=== PATIENT | male | born 1955 | race Two or more races ===

== ENCOUNTER 2023-04-09 16:15 | Inpatient (IN) | payer MEDICARE, OTHER ==
[~2023-04-09] VITALS: Ht 170.2 cm; Wt 70.8 kg
[~2023-04-09 16:15] MED LIST: METF-1185 PO
[2023-04-09 16:30] VITALS: BP 133/73; PULSE 85; RESP 18; TEMP 98.1; O2SAT 100
[2023-04-09] MEDS ORDERED: MAGNESIUM HYDROXIDE SUSPENSION 30 ML UDCUP PO PRN (16:30)
[2023-04-09] MEDS ORDERED: DEXTROSE 50%-WATER 25 GM/50 ML SYRINGE IVP PRN (16:30)
[2023-04-09] MEDS ORDERED: PNEUMOCOCCAL VACCINE POLYVALENT 0.5 ML SYRINGE [PPSV23] IM. ONE (17:15)
[2023-04-09] MEDS ORDERED: INFLUENZA VIRUS VACCINE QVS 2023-24 (6MO+)/PF 60 MCG/0.5 ML SYRINGE IM. ONE (17:15)
[2023-04-09 17:56] LABS: GLUCOMETER DEV NAME(LOC) 2WR.2B; GLUCOSE,POINT OF CARE 231 MG/DL (70-110)
[2023-04-09] MEDS: INSULIN LISPRO 100 UNITS/ML SQ PRN ×2 (18:01→20:21)
[2023-04-09 19:33] VITALS: BP 160/67; PULSE 94; RESP 19; TEMP 98.1; O2SAT 99
[2023-04-09] MEDS: OxyCODONE HCL/ACETAMINOPHEN 5-325 MG TABLET PO PRN (19:33)
[2023-04-09] MEDS: ENOXAPARIN SODIUM 40 MG/0.4 ML PF SYRINGE SQ SCH (20:22)
[2023-04-09] MEDS: DOCUSATE SODIUM 250 MG CAPSULE PO SCH (20:23)
[2023-04-09] MEDS: METOPROLOL TARTRATE 25 MG TABLET PO SCH (20:23)
[2023-04-09] MEDS: SENNOSIDES 8.6 MG TABLET PO PRN (20:23)
[2023-04-09 20:36] LABS: GLUCOMETER DEV NAME(LOC) 2WR.2B; GLUCOSE,POINT OF CARE 243 MG/DL (70-110)
[2023-04-09 20:56] VITALS: O2SAT 99
[2023-04-09] MEDS ORDERED: DOCUSATE SODIUM 100 MG CAPSULE PO SCH (21:00)
[2023-04-09] MEDS: BISACODYL 10 MG RECTAL RECTAL SUPPOSITORY PR PRN (22:42)
[2023-04-10 06:30] VITALS: BP 151/75; PULSE 86; RESP 18; O2SAT 97
[2023-04-10 06:41] LABS: GLUCOMETER DEV NAME(LOC) 2WR.1D; GLUCOSE,POINT OF CARE 213 MG/DL (70-110)
[2023-04-10 06:54] LABS: BASOPHILS % (AUTO) 0.3 % (0.0-2.0); EOSINOPHILS % (AUTO) 0.9 % (1.0-6.0); HEMATOCRIT 26.1 % (41-53); HEMOGLOBIN 8.7 g/dL (13.5-17.5); LYMPHOCYTES # (AUTO) 1.3 K/uL (1.0-4.8); LYMPHOCYTES % (AUTO) 8.8 % (22.0-44.0); MEAN CORPUSCULAR HEMOGLOBIN 30.5 pg (26.0-34.0); MEAN CORPUSCULAR HGB CONC 33.3 G/dL (31.0-37.0); MEAN CORPUSCULAR VOLUME 92 fL (80-100); MONOCYTES # (AUTO) 0.8 K/uL (0.1-1.0); MONOCYTES % (AUTO) 5.6 % (2.0-9.0); NEUTROPHILS # (AUTO) 12.4 K/uL (1.8-7.7); NEUTROPHILS % (AUTO) 84.4 % (40.0-70.0); PLATELET COUNT (AUTO) 498 K/uL (150-450); RED BLOOD CELL COUNT(AUTO) 2.85 MIL/uL (4.50-5.90); RED CELL DISTRIBUTION WIDTH 14.3 % (11.5-14.5); WHITE BLOOD COUNT (AUTO) 14.7 K/uL (4.5-11.0)
[2023-04-10 07:14] LABS: ALBUMIN 0.9 g/dL (3.4-5.0); BILIRUBIN,TOTAL 0.3 mg/dL (0.1-1.0); CALCIUM, TOTAL 7.7 mg/dL (8.8-10.5); CREATININE 1.44 mg/dL (0.60-1.30); POTASSIUM 4.6 mmol/L (3.5-5.1); TOTAL PROTEIN, SERUM 5.3 g/dL (6.4-8.2)
[2023-04-10 08:00] VITALS: BP 147/76; PULSE 88; RESP 18; TEMP 98.3; O2SAT 97
[2023-04-10] MEDS: INSULIN LISPRO 100 UNITS/ML SQ PRN ×4 (08:12→21:32)
[2023-04-10] MEDS: METOPROLOL TARTRATE 25 MG TABLET PO SCH ×2 (08:13→21:34)
[2023-04-10] MEDS: ENOXAPARIN SODIUM 40 MG/0.4 ML PF SYRINGE SQ SCH ×2 (08:13→21:33)
[2023-04-10] MEDS: ETHYL ALCOHOL 62% ANTISEPTIC NASAL SANITIZER 0.6 ML AMPUL NASAL SCH (08:13)
[2023-04-10] MEDS: ASPIRIN 81 MG CHEWABLE TABLET PO SCH (08:14)
[2023-04-10] MEDS: PANTOPRAZOLE SODIUM 40 MG DR TABLET PO SCH (08:14)
[2023-04-10] MEDS: ATORVASTATIN CALCIUM 20 MG TABLET PO SCH (08:14)
[2023-04-10] MEDS: DOCUSATE SODIUM 250 MG CAPSULE PO SCH ×2 (08:14→21:33)
[2023-04-10] MEDS: CLOPIDOGREL BISULFATE 75 MG TABLET PO SCH (08:14)
[2023-04-10] MEDS: ACETAMINOPHEN 325 MG TABLET PO PRN (11:42)
[2023-04-10] MEDS: CALCIUM CIT/VITAMIN D3 200 MG-250 UNITS[6.25MCG] TABLET PO SCH ×2 (12:32→21:33)
[2023-04-10 13:01] LABS: GLUCOMETER DEV NAME(LOC) 2WR.1D; GLUCOSE,POINT OF CARE 268 MG/DL (70-110)
[2023-04-10 16:14] VITALS: O2SAT 97
[2023-04-10] MEDS: NYSTATIN 30 GM CREAM TP SCH ×2 (16:48→21:33)
[2023-04-10 17:31] LABS: GLUCOMETER DEV NAME(LOC) 2WR.1D; GLUCOSE,POINT OF CARE 255 MG/DL (70-110)
[2023-04-10 20:00] VITALS: BP 137/66; PULSE 83; RESP 20; TEMP 98.2; O2SAT 96
[2023-04-10] MEDS: OxyCODONE HCL/ACETAMINOPHEN 5-325 MG TABLET PO PRN (21:33)
[2023-04-10 22:36] LABS: GLUCOMETER DEV NAME(LOC) 2WR.1D; GLUCOSE,POINT OF CARE 259 MG/DL (70-110)
[2023-04-11] MEDS: ETHYL ALCOHOL 62% ANTISEPTIC NASAL SANITIZER 0.6 ML AMPUL NASAL SCH ×3 (00:55→21:20)
[2023-04-11 06:46] LABS: GLUCOMETER DEV NAME(LOC) 2WR.2B; GLUCOSE,POINT OF CARE 217 MG/DL (70-110)
[2023-04-11 08:01] VITALS: BP 138/72; PULSE 81; RESP 18; TEMP 98.4; O2SAT 98
[2023-04-11] MEDS: ACETAMINOPHEN 325 MG TABLET PO PRN (08:01)
[2023-04-11] MEDS: ENOXAPARIN SODIUM 40 MG/0.4 ML PF SYRINGE SQ SCH ×2 (08:02→21:21)
[2023-04-11] MEDS: NYSTATIN 30 GM CREAM TP SCH ×3 (08:04→21:21)
[2023-04-11] MEDS: CALCIUM CIT/VITAMIN D3 200 MG-250 UNITS[6.25MCG] TABLET PO SCH ×2 (08:05→21:20)
[2023-04-11] MEDS: DOCUSATE SODIUM 250 MG CAPSULE PO SCH ×2 (08:05→21:21)
[2023-04-11] MEDS: CLOPIDOGREL BISULFATE 75 MG TABLET PO SCH (08:05)
[2023-04-11] MEDS: ASPIRIN 81 MG CHEWABLE TABLET PO SCH (08:05)
[2023-04-11] MEDS: PANTOPRAZOLE SODIUM 40 MG DR TABLET PO SCH (08:05)
[2023-04-11] MEDS: ATORVASTATIN CALCIUM 20 MG TABLET PO SCH (08:05)
[2023-04-11] MEDS: METOPROLOL TARTRATE 25 MG TABLET PO SCH ×2 (08:05→21:21)
[2023-04-11] MEDS: INSULIN LISPRO 100 UNITS/ML SQ PRN ×4 (08:43→22:14)
[2023-04-11 09:33] VITALS: O2SAT 98
[2023-04-11] MEDS: GlipiZIDE 5 MG TABLET PO SCH (11:43)
[2023-04-11 11:56] LABS: GLUCOMETER DEV NAME(LOC) 2WR.1D; GLUCOSE,POINT OF CARE 257 MG/DL (70-110)
[2023-04-11 12:01] VITALS: BP 135/73; PULSE 88; RESP 18; TEMP 98.1; O2SAT 98
[2023-04-11] MEDS: OxyCODONE HCL/ACETAMINOPHEN 5-325 MG TABLET PO PRN ×2 (15:33→23:15)
[2023-04-11 19:01] LABS: GLUCOMETER DEV NAME(LOC) 2WR.1D; GLUCOSE,POINT OF CARE 316 MG/DL (70-110)
[2023-04-11 20:10] LABS: APPEARANCE,URINE CLEAR (CLEAR); BILIRUBIN,URINE NEGATIVE (NEGATIVE); COLOR,URINE LIGHT YELLOW (YELLOW); GLUCOSE, URINE (UA) >=1000 mg/dL (NEGATIVE); KETONES,URINE NEGATIVE (NEGATIVE); LEUKOCYTE ESTERASE ,URINE TRACE (NEGATIVE); NITRATE,URINE NEGATIVE (NEGATIVE); OCCULT BLOOD,URINE TRACE (NEGATIVE); PH,URINE 6.5 (5.0-8.0); PROTEIN,URINE 300-600,SEE CONFIRM mg/dL (NEGATIVE); UROBILINOGEN,URINE <=1.0 mg/dL (<=1.0)
[2023-04-11 20:23] LABS: RBC,URINE 0-2 /HPF (0-2)
[2023-04-11 20:24] LABS: BACTERIA,URINE Rare /HPF (None Seen); YEAST,URINE Moderate /HPF (None Seen)
[2023-04-11 20:25] LABS: SQUAMOUS EPITHELIAL CELL,UR Rare /LPF (None Seen)
[2023-04-11 20:33] LABS: SULFOSALICYLIC ACID,URINE 1+ (Negative)
[2023-04-11] MEDS: ZOLPIDEM TARTRATE 5 MG TABLET PO PRN (21:23)
[2023-04-11] MEDS: SENNOSIDES 8.6 MG TABLET PO PRN (21:27)
[2023-04-11 21:57] LABS: GLUCOMETER DEV NAME(LOC) 2WR.2B; GLUCOSE,POINT OF CARE 214 MG/DL (70-110)
[2023-04-12 00:49] VITALS: O2SAT 98
[2023-04-12 05:50] LABS: BASOPHILS % (AUTO) 0.2 % (0.0-2.0); EOSINOPHILS % (AUTO) 1.4 % (1.0-6.0); HEMATOCRIT 22.3 % (41-53); HEMOGLOBIN 7.5 g/dL (13.5-17.5); LYMPHOCYTES # (AUTO) 1.4 K/uL (1.0-4.8); LYMPHOCYTES % (AUTO) 11.2 % (22.0-44.0); MEAN CORPUSCULAR HEMOGLOBIN 30.7 pg (26.0-34.0); MEAN CORPUSCULAR HGB CONC 33.6 G/dL (31.0-37.0); MEAN CORPUSCULAR VOLUME 91 fL (80-100); MONOCYTES # (AUTO) 0.7 K/uL (0.1-1.0); MONOCYTES % (AUTO) 6.2 % (2.0-9.0); NEUTROPHILS # (AUTO) 9.8 K/uL (1.8-7.7); PLATELET COUNT (AUTO) 526 K/uL (150-450); RED BLOOD CELL COUNT(AUTO) 2.44 MIL/uL (4.50-5.90); RED CELL DISTRIBUTION WIDTH 14.2 % (11.5-14.5); WHITE BLOOD COUNT (AUTO) 12.1 K/uL (4.5-11.0)
[2023-04-12 07:06] LABS: GLUCOMETER DEV NAME(LOC) 2WR.1D; GLUCOSE,POINT OF CARE 181 MG/DL (70-110)
[2023-04-12] MEDS: ETHYL ALCOHOL 62% ANTISEPTIC NASAL SANITIZER 0.6 ML AMPUL NASAL SCH ×2 (07:24→21:14)
[2023-04-12] MEDS: GlipiZIDE 5 MG TABLET PO SCH ×2 (07:24→16:55)
[2023-04-12] MEDS: DOCUSATE SODIUM 250 MG CAPSULE PO SCH ×2 (07:37→21:15)
[2023-04-12] MEDS: ATORVASTATIN CALCIUM 20 MG TABLET PO SCH (07:37)
[2023-04-12] MEDS: CLOPIDOGREL BISULFATE 75 MG TABLET PO SCH (07:37)
[2023-04-12] MEDS: ASPIRIN 81 MG CHEWABLE TABLET PO SCH (07:37)
[2023-04-12] MEDS: PANTOPRAZOLE SODIUM 40 MG DR TABLET PO SCH (07:38)
[2023-04-12] MEDS: ENOXAPARIN SODIUM 40 MG/0.4 ML PF SYRINGE SQ SCH (07:38)
[2023-04-12] MEDS: METOPROLOL TARTRATE 25 MG TABLET PO SCH ×2 (07:38→21:15)
[2023-04-12] MEDS: CALCIUM CIT/VITAMIN D3 200 MG-250 UNITS[6.25MCG] TABLET PO SCH ×2 (07:39→21:15)
[2023-04-12] MEDS: NYSTATIN 30 GM CREAM TP SCH ×3 (07:39→21:15)
[2023-04-12] MEDS: INSULIN LISPRO 100 UNITS/ML SQ PRN ×4 (07:56→21:19)
[2023-04-12 08:40] VITALS: BP 171/85; PULSE 90; RESP 17; TEMP 98.3; O2SAT 98
[2023-04-12] MEDS: ACETAMINOPHEN 325 MG TABLET PO PRN (08:42)
[2023-04-12 11:29] VITALS: O2SAT 98
[2023-04-12 12:41] LABS: GLUCOMETER DEV NAME(LOC) 2WR.1D; GLUCOSE,POINT OF CARE 309 MG/DL (70-110)
[2023-04-12 18:26] LABS: GLUCOMETER DEV NAME(LOC) 2WR.2B; GLUCOSE,POINT OF CARE 264 MG/DL (70-110)
[2023-04-12 20:03] VITALS: BP 140/76; PULSE 85; RESP 18; TEMP 98.3; O2SAT 99
[2023-04-12 20:04] VITALS: O2SAT 99
[2023-04-13] VITALS (13 sets, daily range): BP systolic 135–156; BP diastolic 59–77; PULSE 78–99; RESP 16–18; TEMP 98–99; O2SAT 99
[2023-04-13 03:11] LABS: GLUCOMETER DEV NAME(LOC) 2WR.2B; GLUCOSE,POINT OF CARE 299 MG/DL (70-110)
[2023-04-13 07:42] LABS: BASOPHILS % (AUTO) 0.4 % (0.0-2.0); EOSINOPHILS % (AUTO) 1.9 % (1.0-6.0); LYMPHOCYTES # (AUTO) 1.5 K/uL (1.0-4.8); LYMPHOCYTES % (AUTO) 13.1 % (22.0-44.0); MEAN CORPUSCULAR HEMOGLOBIN 30.6 pg (26.0-34.0); MEAN CORPUSCULAR HGB CONC 33.1 G/dL (31.0-37.0); MEAN CORPUSCULAR VOLUME 92 fL (80-100); MONOCYTES # (AUTO) 0.7 K/uL (0.1-1.0); MONOCYTES % (AUTO) 5.9 % (2.0-9.0); NEUTROPHILS % (AUTO) 78.7 % (40.0-70.0); PLATELET COUNT (AUTO) 570 K/uL (150-450); RED BLOOD CELL COUNT(AUTO) 2.21 MIL/uL (4.50-5.90); RED CELL DISTRIBUTION WIDTH 14.8 % (11.5-14.5); WHITE BLOOD COUNT (AUTO) 11.5 K/uL (4.5-11.0)
[2023-04-13 07:46] LABS: HEMATOCRIT 20.4 % (41-53); HEMOGLOBIN 6.8 g/dL (13.5-17.5)
[2023-04-13 08:11] LABS: GLUCOMETER DEV NAME(LOC) 2WR.1D; GLUCOSE,POINT OF CARE 212 MG/DL (70-110)
[2023-04-13] MEDS: METOPROLOL TARTRATE 25 MG TABLET PO SCH ×2 (08:16→21:07)
[2023-04-13] MEDS: ETHYL ALCOHOL 62% ANTISEPTIC NASAL SANITIZER 0.6 ML AMPUL NASAL SCH ×2 (08:16→21:08)
[2023-04-13] MEDS: DOCUSATE SODIUM 250 MG CAPSULE PO SCH ×3 (08:17→21:08)
[2023-04-13] MEDS: GlipiZIDE 5 MG TABLET PO SCH ×2 (08:17→17:23)
[2023-04-13] MEDS: PANTOPRAZOLE SODIUM 40 MG DR TABLET PO SCH (08:17)
[2023-04-13] MEDS: CALCIUM CIT/VITAMIN D3 200 MG-250 UNITS[6.25MCG] TABLET PO SCH ×2 (08:17→21:07)
[2023-04-13] MEDS: ATORVASTATIN CALCIUM 20 MG TABLET PO SCH (08:18)
[2023-04-13] MEDS: NYSTATIN 30 GM CREAM TP SCH ×3 (08:19→21:08)
[2023-04-13] MEDS: INSULIN LISPRO 100 UNITS/ML SQ PRN ×4 (08:58→21:09)
[2023-04-13] MEDS: PANTOPRAZOLE SODIUM 80 MG in SODIUM CHLORIDE 0.9% 100 ML IV SCH ×2 (12:11→23:59)
[2023-04-13 13:06] LABS: GLUCOMETER DEV NAME(LOC) 2WR.2B; GLUCOSE,POINT OF CARE 276 MG/DL (70-110)
[2023-04-13 17:37] LABS: GLUCOMETER DEV NAME(LOC) 2WR.1D; GLUCOSE,POINT OF CARE 287 MG/DL (70-110)
[2023-04-13] MEDS: SENNOSIDES 8.6 MG TABLET PO PRN (21:07)
[2023-04-13 22:26] LABS: GLUCOMETER DEV NAME(LOC) 2WR.2B; GLUCOSE,POINT OF CARE 343 MG/DL (70-110)
[2023-04-14 06:36] LABS: GLUCOMETER DEV NAME(LOC) 2WR.1D; GLUCOSE,POINT OF CARE 173 MG/DL (70-110)
[2023-04-14 08:05] VITALS: BP 153/75; PULSE 91; RESP 18; TEMP 98.2; O2SAT 97
[2023-04-14 08:09] LABS: BASOPHILS % (AUTO) 0.8 % (0.0-2.0); EOSINOPHILS % (AUTO) 2.1 % (1.0-6.0); HEMATOCRIT 21.3 % (41-53); HEMOGLOBIN 7.3 g/dL (13.5-17.5); LYMPHOCYTES # (AUTO) 1.2 K/uL (1.0-4.8); LYMPHOCYTES % (AUTO) 12.7 % (22.0-44.0); MEAN CORPUSCULAR HEMOGLOBIN 32.1 pg (26.0-34.0); MEAN CORPUSCULAR HGB CONC 34.2 G/dL (31.0-37.0); MEAN CORPUSCULAR VOLUME 94 fL (80-100); MONOCYTES # (AUTO) 0.6 K/uL (0.1-1.0); MONOCYTES % (AUTO) 6.8 % (2.0-9.0); NEUTROPHILS # (AUTO) 7.3 K/uL (1.8-7.7); NEUTROPHILS % (AUTO) 77.6 % (40.0-70.0); PLATELET COUNT (AUTO) 494 K/uL (150-450); RED BLOOD CELL COUNT(AUTO) 2.28 MIL/uL (4.50-5.90); RED CELL DISTRIBUTION WIDTH 15.1 % (11.5-14.5); WHITE BLOOD COUNT (AUTO) 9.4 K/uL (4.5-11.0)
[2023-04-14] MEDS: METOPROLOL TARTRATE 25 MG TABLET PO SCH ×2 (08:42→21:26)
[2023-04-14] MEDS: GlipiZIDE 5 MG TABLET PO SCH ×2 (08:42→16:33)
[2023-04-14] MEDS: ATORVASTATIN CALCIUM 20 MG TABLET PO SCH (08:42)
[2023-04-14] MEDS: FLUCONAZOLE 100 MG TABLET PO SCH (08:42)
[2023-04-14] MEDS: CALCIUM CIT/VITAMIN D3 200 MG-250 UNITS[6.25MCG] TABLET PO SCH ×2 (08:42→21:26)
[2023-04-14] MEDS: NYSTATIN 30 GM CREAM TP SCH ×3 (08:43→21:26)
[2023-04-14] MEDS: ETHYL ALCOHOL 62% ANTISEPTIC NASAL SANITIZER 0.6 ML AMPUL NASAL SCH ×2 (08:43→21:26)
[2023-04-14] MEDS: DOCUSATE SODIUM 250 MG CAPSULE PO SCH ×2 (08:44→21:26)
[2023-04-14] MEDS: INSULIN LISPRO 100 UNITS/ML SQ PRN ×4 (08:50→21:34)
[2023-04-14] MEDS: PANTOPRAZOLE SODIUM 80 MG in SODIUM CHLORIDE 0.9% 100 ML IV SCH ×2 (10:28→21:43)
[2023-04-14 13:41] LABS: GLUCOMETER DEV NAME(LOC) 2WR.2B; GLUCOSE,POINT OF CARE 260 MG/DL (70-110)
[2023-04-14 14:00] VITALS: O2SAT 97
[2023-04-14 16:13] LABS: HEMOGLOBIN 8.1 g/dL (13.5-17.5)
[2023-04-14 18:06] LABS: GLUCOMETER DEV NAME(LOC) 2WR.1D; GLUCOSE,POINT OF CARE 243 MG/DL (70-110)
[2023-04-14 21:00] VITALS: BP 125/75; PULSE 94; RESP 18; TEMP 98.2; O2SAT 1; O2SAT 100
[2023-04-14] MEDS ORDERED: SODIUM CHLORIDE 0.9% 1,000 ML IV ONE (21:00)
[2023-04-14] MEDS: OxyCODONE HCL/ACETAMINOPHEN 5-325 MG TABLET PO PRN (21:42)
[2023-04-14 22:06] LABS: GLUCOMETER DEV NAME(LOC) 2WR.2B; GLUCOSE,POINT OF CARE 313 MG/DL (70-110)
[2023-04-15 06:36] LABS: GLUCOMETER DEV NAME(LOC) 2WR.2B; GLUCOSE,POINT OF CARE 252 MG/DL (70-110)
[2023-04-15] MEDS: GlipiZIDE 5 MG TABLET PO SCH ×2 (07:00→15:57)
[2023-04-15 08:32] LABS: BASOPHILS % (AUTO) 1.2 % (0.0-2.0); EOSINOPHILS % (AUTO) 1.8 % (1.0-6.0); HEMATOCRIT 22.5 % (41-53); HEMOGLOBIN 7.7 g/dL (13.5-17.5); LYMPHOCYTES # (AUTO) 1.3 K/uL (1.0-4.8); MEAN CORPUSCULAR HEMOGLOBIN 32.2 pg (26.0-34.0); MEAN CORPUSCULAR HGB CONC 34.3 G/dL (31.0-37.0); MEAN CORPUSCULAR VOLUME 94 fL (80-100); MONOCYTES # (AUTO) 0.6 K/uL (0.1-1.0); MONOCYTES % (AUTO) 5.4 % (2.0-9.0); NEUTROPHILS # (AUTO) 9.5 K/uL (1.8-7.7); NEUTROPHILS % (AUTO) 80.6 % (40.0-70.0); PLATELET COUNT (AUTO) 519 K/uL (150-450); WHITE BLOOD COUNT (AUTO) 11.8 K/uL (4.5-11.0)
[2023-04-15 08:41] LABS: ANION GAP 3 mmol/L (8-16); CALCIUM, TOTAL 7.9 mg/dL (8.8-10.5); CARBON DIOXIDE 27 mmol/L (22-29); CHLORIDE 100 mmol/L (98-107); CREATININE 1.12 mg/dL (0.60-1.30); GLOMERULAR FILTR. RATE CALC > 60 mL/min (>60); GLUCOSE,RANDOM 270 mg/dL (70-110); POTASSIUM 4.3 mmol/L (3.5-5.1); SODIUM SERUM 130 mmol/L (136-145); UREA NITROGEN, BLOOD 21 mg/dL (7-18)
[2023-04-15] MEDS: CALCIUM CIT/VITAMIN D3 200 MG-250 UNITS[6.25MCG] TABLET PO SCH ×2 (09:00→20:17)
[2023-04-15] MEDS: DOCUSATE SODIUM 250 MG CAPSULE PO SCH ×2 (09:00→20:17)
[2023-04-15] MEDS: FLUCONAZOLE 100 MG TABLET PO SCH (09:00)
[2023-04-15] MEDS: METOPROLOL TARTRATE 25 MG TABLET PO SCH ×2 (09:00→20:17)
[2023-04-15] MEDS: NYSTATIN 30 GM CREAM TP SCH ×3 (09:00→20:18)
[2023-04-15] MEDS: ATORVASTATIN CALCIUM 20 MG TABLET PO SCH (09:00)
[2023-04-15] MEDS: PANTOPRAZOLE SODIUM 80 MG in SODIUM CHLORIDE 0.9% 100 ML IV SCH (09:12)
[2023-04-15] MEDS: ETHYL ALCOHOL 62% ANTISEPTIC NASAL SANITIZER 0.6 ML AMPUL NASAL SCH ×2 (09:13→20:16)
[2023-04-15] MEDS ORDERED: SODIUM CHLORIDE 0.9% 1,000 ML IV ONE (09:15)
[2023-04-15] MEDS ORDERED: SODIUM CHLORIDE 0.9% 1,000 ML ONE (09:21)
[2023-04-15 10:29] VITALS: BP 144/78; PULSE 93; RESP 18; TEMP 97.8; O2SAT 97
[2023-04-15 11:20] VITALS: O2SAT 97
[2023-04-15] MEDS ORDERED: FentaNYL CITRATE PF 100 MCG/2 ML VIAL ONE (11:42)
[2023-04-15] MEDS ORDERED: MIDAZOLAM HCL 5 MG/ML VIAL ONE (11:42)
[2023-04-15 13:20] VITALS: BP 160/81; PULSE 92; RESP 18; TEMP 97.8; O2SAT 97
[2023-04-15] MEDS: INSULIN LISPRO 100 UNITS/ML SQ PRN ×3 (14:07→21:17)
[2023-04-15 14:17] LABS: GLUCOMETER DEV NAME(LOC) 2WR.2B; GLUCOSE,POINT OF CARE 220 MG/DL (70-110)
[2023-04-15] MEDS: ACETAMINOPHEN 325 MG TABLET PO PRN (15:59)
[2023-04-15 16:00] VITALS: BP 152/77; PULSE 91; RESP 18; TEMP 98.2; O2SAT 98
[2023-04-15 18:27] LABS: GLUCOMETER DEV NAME(LOC) 2WR.1D; GLUCOSE,POINT OF CARE 257 MG/DL (70-110)
[2023-04-15 20:12] VITALS: BP 158/82; PULSE 93; RESP 18; TEMP 98.5; O2SAT 100
[2023-04-15] MEDS: PANTOPRAZOLE SODIUM 40 MG DR TABLET PO SCH (20:18)
[2023-04-15] MEDS: 0.9% SODIUM CHLORIDE 10 ML SYRINGE IVP SCH (20:19)
[2023-04-15 20:56] LABS: GLUCOMETER DEV NAME(LOC) 2WR.2B; GLUCOSE,POINT OF CARE 291 MG/DL (70-110)
[2023-04-15] MEDS ORDERED: PANTOPRAZOLE SODIUM 40 MG DR TABLET PO SCH (21:00)
[2023-04-15] MEDS: ZOLPIDEM TARTRATE 5 MG TABLET PO PRN (21:12)
[2023-04-15 22:45] VITALS: O2SAT 100
[2023-04-16 03:00] VITALS: BP 168/79; PULSE 92; RESP 18; O2SAT 98
[2023-04-16] MEDS: OxyCODONE HCL/ACETAMINOPHEN 5-325 MG TABLET PO PRN (03:19)
[2023-04-16 06:06] VITALS: BP 153/85; PULSE 90; RESP 18; O2SAT 95
[2023-04-16] MEDS: ACETAMINOPHEN 325 MG TABLET PO PRN (06:24)
[2023-04-16 06:46] LABS: GLUCOMETER DEV NAME(LOC) 2WR.1D; GLUCOSE,POINT OF CARE 200 MG/DL (70-110)
[2023-04-16 07:01] LABS: BASOPHILS % (AUTO) 0.5 % (0.0-2.0); EOSINOPHILS % (AUTO) 1.4 % (1.0-6.0); HEMATOCRIT 22.9 % (41-53); HEMOGLOBIN 7.9 g/dL (13.5-17.5); LYMPHOCYTES # (AUTO) 1.8 K/uL (1.0-4.8); LYMPHOCYTES % (AUTO) 13.7 % (22.0-44.0); MEAN CORPUSCULAR HEMOGLOBIN 32.4 pg (26.0-34.0); MEAN CORPUSCULAR HGB CONC 34.4 G/dL (31.0-37.0); MEAN CORPUSCULAR VOLUME 94 fL (80-100); MONOCYTES # (AUTO) 0.8 K/uL (0.1-1.0); MONOCYTES % (AUTO) 6.4 % (2.0-9.0); NEUTROPHILS # (AUTO) 10.2 K/uL (1.8-7.7); PLATELET COUNT (AUTO) 539 K/uL (150-450); RED BLOOD CELL COUNT(AUTO) 2.43 MIL/uL (4.50-5.90); RED CELL DISTRIBUTION WIDTH 15.2 % (11.5-14.5); WHITE BLOOD COUNT (AUTO) 13.1 K/uL (4.5-11.0)
[2023-04-16 08:05] VITALS: BP 132/66; PULSE 94; RESP 18; TEMP 98.1; O2SAT 97
[2023-04-16] MEDS: NYSTATIN 30 GM CREAM TP SCH ×3 (08:05→20:44)
[2023-04-16] MEDS: FLUCONAZOLE 100 MG TABLET PO SCH (08:05)
[2023-04-16] MEDS: ETHYL ALCOHOL 62% ANTISEPTIC NASAL SANITIZER 0.6 ML AMPUL NASAL SCH ×2 (08:05→20:42)
[2023-04-16] MEDS: DOCUSATE SODIUM 250 MG CAPSULE PO SCH ×2 (08:05→20:43)
[2023-04-16] MEDS: PANTOPRAZOLE SODIUM 40 MG DR TABLET PO SCH ×2 (08:05→20:49)
[2023-04-16] MEDS: CALCIUM CIT/VITAMIN D3 200 MG-250 UNITS[6.25MCG] TABLET PO SCH ×2 (08:05→20:43)
[2023-04-16] MEDS: GlipiZIDE 5 MG TABLET PO SCH ×2 (08:06→16:46)
[2023-04-16] MEDS: METOPROLOL TARTRATE 25 MG TABLET PO SCH ×2 (08:06→20:43)
[2023-04-16] MEDS: ATORVASTATIN CALCIUM 20 MG TABLET PO SCH (08:06)
[2023-04-16] MEDS: 0.9% SODIUM CHLORIDE 10 ML SYRINGE IVP SCH (08:09)
[2023-04-16] MEDS: INSULIN LISPRO 100 UNITS/ML SQ PRN ×4 (08:28→21:00)
[2023-04-16] MEDS: SODIUM CHLORIDE 1 GM TABLET PO SCH ×2 (10:10→20:44)
[2023-04-16 11:34] VITALS: O2SAT 95; O2SAT 97
[2023-04-16 12:47] LABS: GLUCOMETER DEV NAME(LOC) 2WR.2B; GLUCOSE,POINT OF CARE 247 MG/DL (70-110)
[2023-04-16 13:49] LABS: APPEARANCE,URINE CLEAR (CLEAR); BILIRUBIN,URINE NEGATIVE (NEGATIVE); COLOR,URINE YELLOW (YELLOW); GLUCOSE, URINE (UA) >=1000 mg/dL (NEGATIVE); KETONES,URINE NEGATIVE (NEGATIVE); LEUKOCYTE ESTERASE ,URINE SMALL (NEGATIVE); NITRATE,URINE NEGATIVE (NEGATIVE); OCCULT BLOOD,URINE SMALL (NEGATIVE); PH,URINE 6.5 (5.0-8.0); PROTEIN,URINE >600,SEE CONFIRM mg/dL (NEGATIVE); SPECIFIC GRAVITIY, URINE 1.019 (1.003-1.030); UROBILINOGEN,URINE <=1.0 mg/dL (<=1.0)
[2023-04-16 13:59] LABS: BACTERIA,URINE Few /HPF (None Seen); RBC,URINE 0-2 /HPF (0-2); SQUAMOUS EPITHELIAL CELL,UR Few /LPF (None Seen); SULFOSALICYLIC ACID,URINE 4+ (Negative)
[2023-04-16] MEDS: LEVOFLOXACIN 500 MG TABLET PO SCH (16:46)
[2023-04-16 17:45] LABS: GLUCOMETER DEV NAME(LOC) 2WR.1D; GLUCOSE,POINT OF CARE 217 MG/DL (70-110)
[2023-04-16] MEDS: SENNOSIDES 8.6 MG TABLET PO PRN (20:50)
[2023-04-16] MEDS: ZOLPIDEM TARTRATE 5 MG TABLET PO PRN (20:51)
[2023-04-16 21:00] VITALS: BP 159/81; PULSE 88; RESP 20; TEMP 98.2; O2SAT 99
[2023-04-17] MEDS: ACETAMINOPHEN 325 MG TABLET PO PRN (02:51)
[2023-04-17 05:11] LABS: GLUCOMETER DEV NAME(LOC) 2WR.2B; GLUCOSE,POINT OF CARE 234 MG/DL (70-110)
[2023-04-17 06:32] LABS: BASOPHILS % (AUTO) 0.5 % (0.0-2.0); EOSINOPHILS % (AUTO) 1.5 % (1.0-6.0); HEMATOCRIT 21.6 % (41-53); HEMOGLOBIN 7.4 g/dL (13.5-17.5); LYMPHOCYTES # (AUTO) 1.4 K/uL (1.0-4.8); LYMPHOCYTES % (AUTO) 15.6 % (22.0-44.0); MEAN CORPUSCULAR HEMOGLOBIN 32.4 pg (26.0-34.0); MEAN CORPUSCULAR HGB CONC 34.3 G/dL (31.0-37.0); MEAN CORPUSCULAR VOLUME 95 fL (80-100); MONOCYTES # (AUTO) 0.6 K/uL (0.1-1.0); MONOCYTES % (AUTO) 7.5 % (2.0-9.0); NEUTROPHILS # (AUTO) 6.5 K/uL (1.8-7.7); NEUTROPHILS % (AUTO) 74.9 % (40.0-70.0); PLATELET COUNT (AUTO) 477 K/uL (150-450); RED BLOOD CELL COUNT(AUTO) 2.28 MIL/uL (4.50-5.90); RED CELL DISTRIBUTION WIDTH 15.4 % (11.5-14.5); WHITE BLOOD COUNT (AUTO) 8.7 K/uL (4.5-11.0)
[2023-04-17 06:47] LABS: GLUCOMETER DEV NAME(LOC) 2WR.1D; GLUCOSE,POINT OF CARE 149 MG/DL (70-110)
[2023-04-17] MEDS: INSULIN LISPRO 100 UNITS/ML SQ PRN ×3 (08:02→21:43)
[2023-04-17] MEDS: GlipiZIDE 5 MG TABLET PO SCH ×2 (08:41→16:20)
[2023-04-17] MEDS: ETHYL ALCOHOL 62% ANTISEPTIC NASAL SANITIZER 0.6 ML AMPUL NASAL SCH ×2 (08:42→21:31)
[2023-04-17] MEDS: NYSTATIN 30 GM CREAM TP SCH ×3 (08:47→21:31)
[2023-04-17] MEDS: CALCIUM CIT/VITAMIN D3 200 MG-250 UNITS[6.25MCG] TABLET PO SCH ×2 (08:48→21:30)
[2023-04-17] MEDS: ATORVASTATIN CALCIUM 20 MG TABLET PO SCH (08:48)
[2023-04-17] MEDS: PANTOPRAZOLE SODIUM 40 MG DR TABLET PO SCH ×2 (08:48→21:31)
[2023-04-17] MEDS: DOCUSATE SODIUM 250 MG CAPSULE PO SCH ×2 (08:48→21:30)
[2023-04-17] MEDS: SODIUM CHLORIDE 1 GM TABLET PO SCH ×2 (08:49→21:30)
[2023-04-17] MEDS: METOPROLOL TARTRATE 25 MG TABLET PO SCH ×2 (08:49→21:31)
[2023-04-17] MEDS: LEVOFLOXACIN 500 MG TABLET PO SCH (08:49)
[2023-04-17 08:55] VITALS: BP 157/88; PULSE 98; RESP 18; TEMP 98.4; O2SAT 98
[2023-04-17 11:57] VITALS: BP 153/71; PULSE 80; RESP 19; TEMP 97.8; O2SAT 99
[2023-04-17] MEDS: OxyCODONE HCL/ACETAMINOPHEN 5-325 MG TABLET PO PRN (11:57)
[2023-04-17 12:35] LABS: GLUCOMETER DEV NAME(LOC) 2WR.1D; GLUCOSE,POINT OF CARE 172 MG/DL (70-110)
[2023-04-17 18:16] LABS: GLUCOMETER DEV NAME(LOC) 2WR.1D; GLUCOSE,POINT OF CARE 139 MG/DL (70-110)
[2023-04-17 20:51] LABS: GLUCOMETER DEV NAME(LOC) 2WR.2B; GLUCOSE,POINT OF CARE 198 MG/DL (70-110)
[2023-04-17] MEDS: SENNOSIDES 8.6 MG TABLET PO PRN (21:30)
[2023-04-17] MEDS: ZOLPIDEM TARTRATE 5 MG TABLET PO PRN (21:31)
[2023-04-18 00:21] VITALS: BP 152/77; PULSE 91; RESP 18; TEMP 98; O2SAT 98
[2023-04-18] MEDS: OxyCODONE HCL/ACETAMINOPHEN 5-325 MG TABLET PO PRN ×2 (02:34→14:28)
[2023-04-18 06:31] LABS: GLUCOMETER DEV NAME(LOC) 2WR.1D; GLUCOSE,POINT OF CARE 159 MG/DL (70-110)
[2023-04-18] MEDS: INSULIN LISPRO 100 UNITS/ML SQ PRN ×4 (07:51→20:14)
[2023-04-18] MEDS: PANTOPRAZOLE SODIUM 40 MG DR TABLET PO SCH ×2 (07:53→20:02)
[2023-04-18] MEDS: SODIUM CHLORIDE 1 GM TABLET PO SCH ×2 (07:53→20:02)
[2023-04-18] MEDS: DOCUSATE SODIUM 250 MG CAPSULE PO SCH ×2 (07:53→20:02)
[2023-04-18] MEDS: GlipiZIDE 5 MG TABLET PO SCH ×2 (07:53→15:55)
[2023-04-18] MEDS: METOPROLOL TARTRATE 25 MG TABLET PO SCH ×2 (07:53→20:02)
[2023-04-18] MEDS: ETHYL ALCOHOL 62% ANTISEPTIC NASAL SANITIZER 0.6 ML AMPUL NASAL SCH ×2 (07:53→20:02)
[2023-04-18] MEDS: ATORVASTATIN CALCIUM 20 MG TABLET PO SCH (07:53)
[2023-04-18] MEDS: LEVOFLOXACIN 500 MG TABLET PO SCH (07:53)
[2023-04-18] MEDS: CALCIUM CIT/VITAMIN D3 200 MG-250 UNITS[6.25MCG] TABLET PO SCH ×2 (07:53→20:02)
[2023-04-18 08:10] LABS: ALANINE AMINOTRANSFERASE 10 U/L (12-78); ALBUMIN 0.9 g/dL (3.4-5.0); ALKALINE PHOSPHATASE 134 U/L (46-116); ANION GAP 3 mmol/L (8-16); ASPARTATE AMINOTRANSFERASE 12 U/L (15-37); BILIRUBIN,TOTAL 0.2 mg/dL (0.1-1.0); CALCIUM, TOTAL 8.3 mg/dL (8.8-10.5); CARBON DIOXIDE 27 mmol/L (22-29); CHLORIDE 102 mmol/L (98-107); CREATININE 1.19 mg/dL (0.60-1.30); GLOMERULAR FILTR. RATE CALC > 60 mL/min (>60); GLUCOSE,RANDOM 164 mg/dL (70-110); POTASSIUM 4.2 mmol/L (3.5-5.1); SODIUM SERUM 132 mmol/L (136-145); UREA NITROGEN, BLOOD 15 mg/dL (7-18)
[2023-04-18 08:16] LABS: B-TYPE NATRIURETIC PEPTIDE 700 pg/mL (0-100)
[2023-04-18] MEDS ORDERED: FUROSEMIDE 20 MG TABLET PO ONE (08:30)
[2023-04-18 08:59] VITALS: BP 143/85; PULSE 90; RESP 18; TEMP 98.6; O2SAT 98
[2023-04-18] MEDS: NYSTATIN 30 GM CREAM TP SCH ×3 (09:07→20:03)
[2023-04-18] MEDS: ACETAMINOPHEN 325 MG TABLET PO PRN (10:03)
[2023-04-18 11:36] LABS: GLUCOMETER DEV NAME(LOC) 2WR.1D; GLUCOSE,POINT OF CARE 175 MG/DL (70-110)
[2023-04-18 17:27] LABS: GLUCOMETER DEV NAME(LOC) 2WR.2B; GLUCOSE,POINT OF CARE 212 MG/DL (70-110)
[2023-04-18] MEDS: SENNOSIDES 8.6 MG TABLET PO PRN (20:03)
[2023-04-18] MEDS: ZOLPIDEM TARTRATE 5 MG TABLET PO PRN (20:05)
[2023-04-18 20:36] LABS: GLUCOMETER DEV NAME(LOC) 2WR.1D; GLUCOSE,POINT OF CARE 204 MG/DL (70-110)
[2023-04-18 21:00] VITALS: BP 161/86; PULSE 94; RESP 18; TEMP 98.4; O2SAT 98
[2023-04-19] MEDS: ACETAMINOPHEN 325 MG TABLET PO PRN (05:48)
[2023-04-19 06:36] LABS: GLUCOMETER DEV NAME(LOC) 2WR.2B; GLUCOSE,POINT OF CARE 169 MG/DL (70-110)
[2023-04-19] MEDS: SODIUM CHLORIDE 1 GM TABLET PO SCH ×2 (07:36→21:02)
[2023-04-19] MEDS: DOCUSATE SODIUM 250 MG CAPSULE PO SCH ×2 (07:36→21:02)
[2023-04-19] MEDS: GlipiZIDE 5 MG TABLET PO SCH ×2 (07:36→17:43)
[2023-04-19] MEDS: ETHYL ALCOHOL 62% ANTISEPTIC NASAL SANITIZER 0.6 ML AMPUL NASAL SCH ×2 (07:36→21:01)
[2023-04-19] MEDS: PANTOPRAZOLE SODIUM 40 MG DR TABLET PO SCH ×2 (07:36→21:03)
[2023-04-19] MEDS: ATORVASTATIN CALCIUM 20 MG TABLET PO SCH (07:36)
[2023-04-19] MEDS: METOPROLOL TARTRATE 25 MG TABLET PO SCH ×2 (07:36→21:02)
[2023-04-19] MEDS: LEVOFLOXACIN 500 MG TABLET PO SCH (07:37)
[2023-04-19] MEDS: NYSTATIN 30 GM CREAM TP SCH ×3 (07:38→21:03)
[2023-04-19] MEDS: CALCIUM CIT/VITAMIN D3 200 MG-250 UNITS[6.25MCG] TABLET PO SCH ×2 (07:38→21:02)
[2023-04-19 08:00] VITALS: BP 140/78; PULSE 90; RESP 18; TEMP 98.2; O2SAT 98
[2023-04-19] MEDS: INSULIN LISPRO 100 UNITS/ML SQ PRN ×4 (08:24→21:07)
[2023-04-19] MEDS ORDERED: FUROSEMIDE 20 MG TABLET PO SCH (09:00)
[2023-04-19 11:16] LABS: GLUCOMETER DEV NAME(LOC) 2WR.1D; GLUCOSE,POINT OF CARE 218 MG/DL (70-110)
[2023-04-19] MEDS ORDERED: [UNRECOGNIZED DRUG - CODE] PO (12:54)
[2023-04-19] MEDS ORDERED: ATOR20TA PO (12:54)
[2023-04-19] MEDS ORDERED: PANT-31 PO (12:54)
[2023-04-19] MEDS ORDERED: CALC-840 PO (12:54)
[2023-04-19] MEDS ORDERED: FURO20 PO (12:54)
[2023-04-19] MEDS ORDERED: DOCU-400 PO (12:54)
[2023-04-19] MEDS ORDERED: INSU100V SQ (12:54)
[2023-04-19] MEDS ORDERED: LEVO-72 PO (12:54)
[2023-04-19] MEDS ORDERED: AMOX500C2 PO (12:54)
[2023-04-19] MEDS ORDERED: METO25 PO (12:54)
[2023-04-19] MEDS ORDERED: GLIP-333 PO (12:54)
[2023-04-19] MEDS ORDERED: CLAR250T39 PO (12:54)
[2023-04-19] MEDS ORDERED: SYRI-590 SQ (12:58)
[2023-04-19 17:16] LABS: GLUCOMETER DEV NAME(LOC) 2WR.2B; GLUCOSE,POINT OF CARE 187 MG/DL (70-110)
[2023-04-19] MEDS: CLARITHROMYCIN 500 MG TABLET PO SCH (21:02)
[2023-04-19] MEDS: AMOXICILLIN TRIHYDRATE 500 MG CAPSULE PO SCH (21:03)
[2023-04-19] MEDS: SENNOSIDES 8.6 MG TABLET PO PRN (21:10)
[2023-04-19 21:56] LABS: GLUCOMETER DEV NAME(LOC) 2WR.2B; GLUCOSE,POINT OF CARE 243 MG/DL (70-110)
[2023-04-19 22:01] VITALS: BP 159/92; PULSE 99; RESP 18; TEMP 98.3; O2SAT 99
[2023-04-20] MEDS: ZOLPIDEM TARTRATE 5 MG TABLET PO PRN (00:20)
[2023-04-20] MEDS: BISACODYL 10 MG RECTAL RECTAL SUPPOSITORY PR PRN (05:06)
[2023-04-20 07:00] VITALS: BP 128/56; PULSE 87; RESP 18; O2SAT 98
[2023-04-20 07:33] LABS: CALCIUM, TOTAL 8.4 mg/dL (8.8-10.5); CREATININE 1.37 mg/dL (0.60-1.30); POTASSIUM 4.4 mmol/L (3.5-5.1)
[2023-04-20 07:34] LABS: BASOPHILS % (AUTO) 0.6 % (0.0-2.0); EOSINOPHILS % (AUTO) 3.2 % (1.0-6.0); HEMATOCRIT 21.4 % (41-53); HEMOGLOBIN 7.5 g/dL (13.5-17.5); LYMPHOCYTES # (AUTO) 1.5 K/uL (1.0-4.8); LYMPHOCYTES % (AUTO) 19.5 % (22.0-44.0); MEAN CORPUSCULAR HEMOGLOBIN 32.6 pg (26.0-34.0); MEAN CORPUSCULAR HGB CONC 34.9 G/dL (31.0-37.0); MEAN CORPUSCULAR VOLUME 93 fL (80-100); MONOCYTES # (AUTO) 0.7 K/uL (0.1-1.0); MONOCYTES % (AUTO) 9.1 % (2.0-9.0); NEUTROPHILS # (AUTO) 5.1 K/uL (1.8-7.7); NEUTROPHILS % (AUTO) 67.6 % (40.0-70.0); PLATELET COUNT (AUTO) 480 K/uL (150-450); RED BLOOD CELL COUNT(AUTO) 2.29 MIL/uL (4.50-5.90); RED CELL DISTRIBUTION WIDTH 15.4 % (11.5-14.5); WHITE BLOOD COUNT (AUTO) 7.6 K/uL (4.5-11.0)
[2023-04-20 07:46] LABS: GLUCOMETER DEV NAME(LOC) 2WR.2B; GLUCOSE,POINT OF CARE 106 MG/DL (70-110)
[2023-04-20 08:15] VITALS: BP 165/87; PULSE 95; RESP 18; TEMP 98.3; O2SAT 98
[2023-04-20 09:30] VITALS: BP 165/82; PULSE 95; RESP 18
[2023-04-20] MEDS: ASPIRIN 81 MG CHEWABLE TABLET PO SCH (09:32)
[2023-04-20] MEDS: ETHYL ALCOHOL 62% ANTISEPTIC NASAL SANITIZER 0.6 ML AMPUL NASAL SCH ×2 (09:32→20:30)
[2023-04-20] MEDS: GlipiZIDE 5 MG TABLET PO SCH ×2 (09:32→17:14)
[2023-04-20] MEDS: DOCUSATE SODIUM 250 MG CAPSULE PO SCH ×2 (09:33→20:35)
[2023-04-20] MEDS: FUROSEMIDE 20 MG TABLET PO SCH ×2 (09:33→20:32)
[2023-04-20] MEDS: CLARITHROMYCIN 500 MG TABLET PO SCH ×2 (09:33→20:31)
[2023-04-20] MEDS: LEVOFLOXACIN 500 MG TABLET PO SCH (09:33)
[2023-04-20] MEDS: CALCIUM CIT/VITAMIN D3 200 MG-250 UNITS[6.25MCG] TABLET PO SCH ×2 (09:33→20:35)
[2023-04-20] MEDS: ATORVASTATIN CALCIUM 20 MG TABLET PO SCH (09:34)
[2023-04-20] MEDS: SODIUM CHLORIDE 1 GM TABLET PO SCH ×2 (09:34→20:31)
[2023-04-20] MEDS: PANTOPRAZOLE SODIUM 40 MG DR TABLET PO SCH ×2 (09:34→20:32)
[2023-04-20] MEDS: METOPROLOL TARTRATE 25 MG TABLET PO SCH ×2 (09:34→20:31)
[2023-04-20] MEDS: AMOXICILLIN TRIHYDRATE 500 MG CAPSULE PO SCH ×2 (09:34→20:31)
[2023-04-20] MEDS: NYSTATIN 30 GM CREAM TP SCH ×3 (09:35→20:33)
[2023-04-20 11:30] VITALS: BP 150/73; PULSE 82; RESP 18
[2023-04-20 11:51] LABS: GLUCOMETER DEV NAME(LOC) 2WR.2B; GLUCOSE,POINT OF CARE 166 MG/DL (70-110)
[2023-04-20] MEDS: INSULIN LISPRO 100 UNITS/ML SQ PRN ×2 (12:21→17:13)
[2023-04-20 17:06] LABS: GLUCOMETER DEV NAME(LOC) 2WR.1D; GLUCOSE,POINT OF CARE 148 MG/DL (70-110)
[2023-04-20 20:30] VITALS: BP 161/87; PULSE 90; RESP 18; TEMP 98.3; O2SAT 100
[2023-04-20 21:30] VITALS: BP 138/91; PULSE 80; RESP 18; O2SAT 98
[2023-04-20 22:01] LABS: GLUCOMETER DEV NAME(LOC) 2WR.1D; GLUCOSE,POINT OF CARE 137 MG/DL (70-110)
[2023-04-21 07:15] LABS: GLUCOMETER DEV NAME(LOC) 2WR.2B; GLUCOSE,POINT OF CARE 83 MG/DL (70-110)
[2023-04-21 08:01] LABS: CALCIUM, TOTAL 8.3 mg/dL (8.8-10.5); CREATININE 1.38 mg/dL (0.60-1.30); POTASSIUM 4.3 mmol/L (3.5-5.1)
[2023-04-21 08:20] VITALS: BP 133/69; PULSE 90; RESP 20; TEMP 98.7; O2SAT 98
[2023-04-21] MEDS: DOCUSATE SODIUM 250 MG CAPSULE PO SCH ×2 (09:00→20:41)
[2023-04-21] MEDS: CALCIUM CIT/VITAMIN D3 200 MG-250 UNITS[6.25MCG] TABLET PO SCH ×2 (09:31→20:37)
[2023-04-21] MEDS: LEVOFLOXACIN 500 MG TABLET PO SCH (09:32)
[2023-04-21] MEDS: ASPIRIN 81 MG CHEWABLE TABLET PO SCH (09:33)
[2023-04-21] MEDS: METOPROLOL TARTRATE 25 MG TABLET PO SCH ×2 (09:33→20:37)
[2023-04-21] MEDS: ATORVASTATIN CALCIUM 20 MG TABLET PO SCH (09:33)
[2023-04-21] MEDS: PANTOPRAZOLE SODIUM 40 MG DR TABLET PO SCH ×2 (09:34→20:37)
[2023-04-21] MEDS: AMOXICILLIN TRIHYDRATE 500 MG CAPSULE PO SCH ×2 (09:35→20:36)
[2023-04-21] MEDS: SODIUM CHLORIDE 1 GM TABLET PO SCH (09:35)
[2023-04-21] MEDS: ETHYL ALCOHOL 62% ANTISEPTIC NASAL SANITIZER 0.6 ML AMPUL NASAL SCH ×2 (09:36→20:36)
[2023-04-21] MEDS: GlipiZIDE 5 MG TABLET PO SCH ×2 (09:36→18:31)
[2023-04-21] MEDS: FUROSEMIDE 20 MG TABLET PO SCH (09:37)
[2023-04-21] MEDS: CLARITHROMYCIN 500 MG TABLET PO SCH ×2 (09:37→20:37)
[2023-04-21] MEDS: NYSTATIN 30 GM CREAM TP SCH ×3 (09:42→20:41)
[2023-04-21 12:36] LABS: GLUCOMETER DEV NAME(LOC) 2WR.1D; GLUCOSE,POINT OF CARE 193 MG/DL (70-110)
[2023-04-21] MEDS: INSULIN LISPRO 100 UNITS/ML SQ PRN ×3 (12:42→21:09)
[2023-04-21] MEDS ORDERED: SODIUM CHLORIDE 0.9% 500 ML IV ONE (14:38)
[2023-04-21] MEDS: ALBUMIN HUMAN 25%-25GM/100ML 100 ML IV SCH ×2 (15:52→21:03)
[2023-04-21] MEDS: EMPAGLIFLOZIN 10 MG TABLET PO SCH (16:07)
[2023-04-21 18:01] LABS: GLUCOMETER DEV NAME(LOC) 2WR.2B; GLUCOSE,POINT OF CARE 178 MG/DL (70-110)
[2023-04-21] MEDS: BUMETANIDE 0.25 MG/ML 4 ML VIAL IVP SCH ×2 (18:29→21:58)
[2023-04-21] MEDS: SENNOSIDES 8.6 MG TABLET PO PRN (20:37)
[2023-04-21 20:40] VITALS: BP 157/85; PULSE 91; RESP 19; TEMP 98.2; O2SAT 99
[2023-04-21] MEDS ORDERED: FUROSEMIDE 40 MG TABLET PO SCH (21:00)
[2023-04-21 21:01] LABS: GLUCOMETER DEV NAME(LOC) 2WR.1D; GLUCOSE,POINT OF CARE 165 MG/DL (70-110)
[2023-04-22] VITALS (9 sets, daily range): BP systolic 136–171; BP diastolic 54–84; PULSE 82–92; RESP 17–18; TEMP 97.8–98.6; O2SAT 96–99
[2023-04-22] MEDS ORDERED: EMPA10TA3 PO (04:48)
[2023-04-22] MEDS ORDERED: ASPI-1450 PO (04:48)
[2023-04-22] MEDS: ALBUMIN HUMAN 25%-25GM/100ML 100 ML IV SCH ×3 (05:01→21:40)
[2023-04-22 06:56] LABS: GLUCOMETER DEV NAME(LOC) 2WR.2B; GLUCOSE,POINT OF CARE 106 MG/DL (70-110)
[2023-04-22] MEDS: GlipiZIDE 5 MG TABLET PO SCH ×2 (08:44→17:37)
[2023-04-22] MEDS: AMOXICILLIN TRIHYDRATE 500 MG CAPSULE PO SCH ×2 (08:53→19:55)
[2023-04-22] MEDS: DOCUSATE SODIUM 250 MG CAPSULE PO SCH ×2 (08:53→19:56)
[2023-04-22] MEDS: CALCIUM CIT/VITAMIN D3 200 MG-250 UNITS[6.25MCG] TABLET PO SCH ×2 (08:53→19:54)
[2023-04-22] MEDS: ASPIRIN 81 MG CHEWABLE TABLET PO SCH (08:54)
[2023-04-22] MEDS: ATORVASTATIN CALCIUM 20 MG TABLET PO SCH (08:54)
[2023-04-22] MEDS: CLARITHROMYCIN 500 MG TABLET PO SCH ×2 (08:56→19:56)
[2023-04-22] MEDS: NYSTATIN 30 GM CREAM TP SCH ×3 (08:57→19:54)
[2023-04-22] MEDS: ETHYL ALCOHOL 62% ANTISEPTIC NASAL SANITIZER 0.6 ML AMPUL NASAL SCH ×2 (08:57→19:56)
[2023-04-22] MEDS: PANTOPRAZOLE SODIUM 40 MG DR TABLET PO SCH ×2 (08:57→20:33)
[2023-04-22] MEDS: METOPROLOL TARTRATE 25 MG TABLET PO SCH ×2 (08:57→19:56)
[2023-04-22] MEDS: BUMETANIDE 0.25 MG/ML 4 ML VIAL IVP SCH ×3 (08:59→19:57)
[2023-04-22] MEDS: EMPAGLIFLOZIN 10 MG TABLET PO SCH (09:19)
[2023-04-22 11:43] LABS: BASOPHILS % (AUTO) 1.1 % (0.0-2.0); EOSINOPHILS % (AUTO) 2.2 % (1.0-6.0); LYMPHOCYTES # (AUTO) 1.1 K/uL (1.0-4.8); LYMPHOCYTES % (AUTO) 15.3 % (22.0-44.0); MEAN CORPUSCULAR HEMOGLOBIN 32.2 pg (26.0-34.0); MEAN CORPUSCULAR HGB CONC 34.2 G/dL (31.0-37.0); MEAN CORPUSCULAR VOLUME 94 fL (80-100); MONOCYTES # (AUTO) 0.6 K/uL (0.1-1.0); MONOCYTES % (AUTO) 8.2 % (2.0-9.0); NEUTROPHILS # (AUTO) 5.2 K/uL (1.8-7.7); NEUTROPHILS % (AUTO) 73.2 % (40.0-70.0); PLATELET COUNT (AUTO) 335 K/uL (150-450); RED BLOOD CELL COUNT(AUTO) 2.07 MIL/uL (4.50-5.90); RED CELL DISTRIBUTION WIDTH 15.7 % (11.5-14.5)
[2023-04-22 11:50] LABS: HEMOGLOBIN 6.7 g/dL (13.5-17.5)
[2023-04-22 11:51] LABS: HEMATOCRIT 19.5 % (41-53)
[2023-04-22 11:57] LABS: HEMOGLOBIN A1C 8.9 % (3.8-5.6)
[2023-04-22 12:14] LABS: TPROTEIN TIMED,URINE 292 mg/dL
[2023-04-22 12:17] LABS: COLLECTION TIME,URINE 24 HR; TOTAL VOLUME 24HRS,URINE 5500 mL; TPROTEIN URINE, 24HRS COLL 16060 mg/24Hr (0-165)
[2023-04-22 12:26] LABS: CALCIUM, TOTAL 8.5 mg/dL (8.8-10.5); CREATININE 1.72 mg/dL (0.60-1.30); MAGNESIUM 1.8 mg/dL (1.80-2.40)
[2023-04-22] MEDS: INSULIN LISPRO 100 UNITS/ML SQ PRN ×3 (12:35→20:24)
[2023-04-22 13:36] LABS: GLUCOMETER DEV NAME(LOC) 2WR.1D; GLUCOSE,POINT OF CARE 200 MG/DL (70-110)
[2023-04-22] MEDS ORDERED: SODIUM CHLORIDE 0.9% 500 ML IV ONE (14:50)
[2023-04-22 16:44] LABS: CREATININE,SERUM FOR CRCL 1.38 mg/dL (0.60-1.30); CREATININE,URINE 11.6 mg/dL (30.0-125.0)
[2023-04-22 17:18] LABS: CREATININE,URINE RANDOM 24.5 mg/dL (30.0-125.0)
[2023-04-22 18:26] LABS: GLUCOMETER DEV NAME(LOC) 2WR.2B; GLUCOSE,POINT OF CARE 200 MG/DL (70-110)
[2023-04-22] MEDS: ZOLPIDEM TARTRATE 5 MG TABLET PO PRN (19:55)
[2023-04-22] MEDS: SENNOSIDES 8.6 MG TABLET PO PRN (19:56)
[2023-04-22] MEDS: 0.9% SODIUM CHLORIDE 10 ML SYRINGE IVP SCH ×2 (20:01→20:02)
[2023-04-22 21:02] LABS: GLUCOMETER DEV NAME(LOC) 2WR.1D; GLUCOSE,POINT OF CARE 185 MG/DL (70-110)
[2023-04-22] MEDS ORDERED: SODIUM CHLORIDE 0.9% 100 ML ONE (21:48)
[2023-04-23] MEDS: BISACODYL 10 MG RECTAL RECTAL SUPPOSITORY PR PRN (05:14)
[2023-04-23] MEDS: ALBUMIN HUMAN 25%-25GM/100ML 100 ML IV SCH (06:02)
[2023-04-23 06:07] LABS: HEPATITIS C AB (EIA) Non Reactive (Non Reactive)
[2023-04-23 06:51] LABS: GLUCOMETER DEV NAME(LOC) 2WR.2B; GLUCOSE,POINT OF CARE 162 MG/DL (70-110)
[2023-04-23 06:51] LABS: BASOPHILS % (AUTO) 1.2 % (0.0-2.0); EOSINOPHILS % (AUTO) 2.9 % (1.0-6.0); HEMATOCRIT 21.6 % (41-53); HEMOGLOBIN 7.5 g/dL (13.5-17.5); LYMPHOCYTES # (AUTO) 1.3 K/uL (1.0-4.8); LYMPHOCYTES % (AUTO) 17.9 % (22.0-44.0); MEAN CORPUSCULAR HEMOGLOBIN 31.8 pg (26.0-34.0); MEAN CORPUSCULAR HGB CONC 34.6 G/dL (31.0-37.0); MEAN CORPUSCULAR VOLUME 92 fL (80-100); MONOCYTES # (AUTO) 0.6 K/uL (0.1-1.0); NEUTROPHILS # (AUTO) 4.9 K/uL (1.8-7.7); PLATELET COUNT (AUTO) 371 K/uL (150-450); RED BLOOD CELL COUNT(AUTO) 2.35 MIL/uL (4.50-5.90); RED CELL DISTRIBUTION WIDTH 15.7 % (11.5-14.5); WHITE BLOOD COUNT (AUTO) 7.1 K/uL (4.5-11.0)
[2023-04-23 07:00] LABS: CALCIUM, TOTAL 8.7 mg/dL (8.8-10.5); CREATININE 1.79 mg/dL (0.60-1.30); POTASSIUM 3.6 mmol/L (3.5-5.1)
[2023-04-23 08:05] VITALS: BP 155/79; PULSE 100; RESP 18; TEMP 98.1; O2SAT 98
[2023-04-23] MEDS: CALCIUM CIT/VITAMIN D3 200 MG-250 UNITS[6.25MCG] TABLET PO SCH (08:20)
[2023-04-23] MEDS: PANTOPRAZOLE SODIUM 40 MG DR TABLET PO SCH (08:20)
[2023-04-23] MEDS: ASPIRIN 81 MG CHEWABLE TABLET PO SCH (08:20)
[2023-04-23] MEDS: METOPROLOL TARTRATE 25 MG TABLET PO SCH (08:21)
[2023-04-23] MEDS: NYSTATIN 30 GM CREAM TP SCH (08:21)
[2023-04-23] MEDS: DOCUSATE SODIUM 250 MG CAPSULE PO SCH (08:21)
[2023-04-23] MEDS: ATORVASTATIN CALCIUM 20 MG TABLET PO SCH (08:21)
[2023-04-23] MEDS: EMPAGLIFLOZIN 10 MG TABLET PO SCH (08:21)
[2023-04-23] MEDS: CLARITHROMYCIN 500 MG TABLET PO SCH (08:21)
[2023-04-23] MEDS: GlipiZIDE 5 MG TABLET PO SCH (08:21)
[2023-04-23] MEDS: AMOXICILLIN TRIHYDRATE 500 MG CAPSULE PO SCH (08:22)
[2023-04-23] MEDS: BUMETANIDE 0.25 MG/ML 4 ML VIAL IVP SCH (08:28)
[2023-04-23] MEDS: 0.9% SODIUM CHLORIDE 10 ML SYRINGE IVP SCH ×2 (08:29→08:30)
[2023-04-23] MEDS: ETHYL ALCOHOL 62% ANTISEPTIC NASAL SANITIZER 0.6 ML AMPUL NASAL SCH (08:29)
[2023-04-23] MEDS: INSULIN LISPRO 100 UNITS/ML SQ PRN (08:45)
[2023-04-23 11:46] LABS: GLUCOMETER DEV NAME(LOC) 2WR.2B; GLUCOSE,POINT OF CARE 133 MG/DL (70-110)
[2023-04-23 12:07] LABS: FREE KAPPA LIGHT CHAINS,S 90.7 mg/L (3.3-19.4); FREE KAPPA/LAMBDA LT CHN RATIO 1.86 (0.26-1.65)
[2023-04-24 06:07] LABS: ALBUMIN/GLOBULIN RATIO (IFE) 1.1 (0.7-1.7); ALPHA-1 (IFE & PEP) 0.3 g/dL (0.0-0.4); ALPHA-2 (IFE & PEP) 0.9 g/dL (0.4-1.0); BETA (IFE & ELP) 0.8 g/dL (0.7-1.3); GAMMA GLOBULINS (IFE & ELP) 0.5 g/dL (0.4-1.8); GLOBULIN TOTAL (IFE) 2.5 g/dL (2.2-3.9); IGA (IFE) 275 mg/dL (61-437); IGM (IMMUNOFIXATION) 52 mg/dL (20-172); M-SPIKE (IEP) Not Observed g/dL (Not Observed)
[2023-04-25 05:08] LABS: ALBUMIN URINE (ELP24) 53.4 %; ALPHA-1 URINE (ELP24) 10.2 %; BETA URINE(ELP24) 15.3 %; GAMMA URINE(ELP24) 11.6 %; PROTEIN,URINE 24HR 16313 mg/24 hr (30-150); TOTAL PROTEIN URINE 296.6 mg/dL (Not Estab.)
== END 2023-04-23 12:14 | disposition short-term general hospital (02) | DRG 562 ==
LOC: 2WR 16:15
PROVIDERS: ADMIT Physical Medicine & Rehabilitation; ATTEND Physical Medicine & Rehabilitation
PROC: 30233N1 Transfusion of Nonautologous Red Blood Cells into Peripheral Vein, Percutaneous Approach (ICD-10-PCS; 2023-04-13)
PROC: 0DB78ZX Excision of Stomach, Pylorus, Via Natural or Artificial Opening Endoscopic, Diagnostic (ICD-10-PCS; principal; 2023-04-15 12:00)
DX: S42.352A Displaced comminuted fracture of shaft of humerus, left arm, initial encounter for closed fracture (principal); J18.9 Pneumonia, unspecified organism; S72.002A Fracture of unspecified part of neck of left femur, initial encounter for closed fracture; K26.4 Chronic or unspecified duodenal ulcer with hemorrhage; D62 Acute posthemorrhagic anemia; E87.1 Hypo-osmolality and hyponatremia; B37.49 Other urogenital candidiasis; E11.22 Type 2 diabetes mellitus with diabetic chronic kidney disease; N18.9 Chronic kidney disease, unspecified; Z96.642 Presence of left artificial hip joint; I12.9 Hypertensive chronic kidney disease with stage 1 through stage 4 chronic kidney disease, or unspecified chronic kidney disease; E78.00 Pure hypercholesterolemia, unspecified; E88.09 Other disorders of plasma-protein metabolism, not elsewhere classified; E11.65 Type 2 diabetes mellitus with hyperglycemia; D72.829 Elevated white blood cell count, unspecified; K31.9 Disease of stomach and duodenum, unspecified; E11.21 Type 2 diabetes mellitus with diabetic nephropathy; B96.81 Helicobacter pylori [H. pylori] as the cause of diseases classified elsewhere; R80.9 Proteinuria, unspecified; R26.9 Unspecified abnormalities of gait and mobility; G31.84 Mild cognitive impairment of uncertain or unknown etiology; D63.8 Anemia in other chronic diseases classified elsewhere; R41.89 Other symptoms and signs involving cognitive functions and awareness; R60.1 Generalized edema; W18.39XA Other fall on same level, initial encounter; Y93.89 Activity, other specified; Z86.16 Personal history of COVID-19; Z86.73 Personal history of transient ischemic attack (TIA), and cerebral infarction without residual deficits; Y92.89 Other specified places as the place of occurrence of the external cause; Y99.8 Other external cause status; Z79.82 Long term (current) use of aspirin; Z83.3 Family history of diabetes mellitus; Z79.4 Long term (current) use of insulin
CPT/HCPCS: 36245; 36569; 71045; 76937; 80048; 80053; 81001; 81002; 81050; 82271; 82570; 82575; 82784; 82962; 83036; 83735; 83880; 83883; 84155; 84156; 84165; 84166; 84300; 84540; 85014; 85018; 85025; 86334; 86803; 86850; 86900; 86901; 86923; 87081; 87086; 87186; 88305; 88312; 88313; 88342; 92507; 92523; 92610; 93005; 93306; 93970; 97110; 97112; 97116; 97140; 97163; 97166; 97530; 97535; 99366; C9113; J1650; J2250; J3010; J3490; J7030; J7040; J7050; P9016; P9046; Q9967; 36415-L1; 36415-TC

== ENCOUNTER 2023-04-23 12:00 | Inpatient (IN) | payer MEDICARE, OTHER ==
[~2023-04-23 12:00] MED LIST changes: +AMOX500C2 PO; +ASPI-1450 PO; +ATOR20TA PO; +CALC-840 PO; +CLAR250T39 PO; +DOCU-412 PO; +EMPA10TA3 PO; +GLIP5TAB16 PO; +INSU100V SQ; -METF-1185 PO; +METO25 PO; +PANT-31 PO; +SODI100067 PO; +SYRI-590 SQ
[2023-04-23 15:59] VITALS: BP 149/104; PULSE 91; RESP 18; TEMP 98.4
[2023-04-23 17:18] VITALS: BP 167/50
[2023-04-23] MEDS ORDERED: BISACODYL 10 MG RECTAL RECTAL SUPPOSITORY PR PRN (17:45)
[2023-04-23] MEDS ORDERED: ZOLPIDEM TARTRATE 5 MG TABLET PO PRN (17:45)
[2023-04-23] MEDS ORDERED: DEXTROSE 50%-WATER 25 GM/50 ML SYRINGE IVP PRN (17:45)
[2023-04-23] MEDS ORDERED: OxyCODONE HCL/ACETAMINOPHEN 5-325 MG TABLET PO PRN ×2 (17:45)
[2023-04-23] MEDS ORDERED: MAGNESIUM HYDROXIDE SUSPENSION 30 ML UDCUP PO PRN (17:45)
[2023-04-23] MEDS ORDERED: SENNOSIDES 8.6 MG TABLET PO PRN (17:45)
[2023-04-23] MEDS ORDERED: ACETAMINOPHEN 325 MG TABLET PO PRN (17:45)
[2023-04-23] MEDS: GlipiZIDE 5 MG TABLET PO SCH (18:23)
[2023-04-23] MEDS: INSULIN LISPRO 100 UNITS/ML SQ PRN ×2 (18:24→20:54)
[2023-04-23 20:29] VITALS: BP 129/75; PULSE 97; RESP 19; TEMP 98.1
[2023-04-23] MEDS: AMOXICILLIN TRIHYDRATE 500 MG CAPSULE PO SCH (20:50)
[2023-04-23] MEDS: ETHYL ALCOHOL 62% ANTISEPTIC NASAL SANITIZER 0.6 ML AMPUL NASAL SCH (20:50)
[2023-04-23] MEDS: ALBUMIN HUMAN 25%-25GM/100ML 100 ML IV SCH (20:50)
[2023-04-23] MEDS: DOCUSATE SODIUM 250 MG CAPSULE PO SCH (20:50)
[2023-04-23] MEDS: CLARITHROMYCIN 500 MG TABLET PO SCH (20:51)
[2023-04-23] MEDS: CALCIUM CIT/VITAMIN D3 200 MG-250 UNITS[6.25MCG] TABLET PO SCH (20:51)
[2023-04-23] MEDS: METOPROLOL TARTRATE 25 MG TABLET PO SCH (20:51)
[2023-04-23] MEDS ORDERED: SODIUM CHLORIDE 0.9% 250 ML IV ONE (20:59)
[2023-04-23] MEDS: 0.9% SODIUM CHLORIDE 10 ML SYRINGE IVP SCH ×2 (21:00)
[2023-04-23] MEDS: NYSTATIN 30 GM CREAM TP SCH (21:00)
[2023-04-23] MEDS: PANTOPRAZOLE SODIUM 40 MG DR TABLET PO SCH (21:29)
[2023-04-23] MEDS: BUMETANIDE 0.25 MG/ML 4 ML VIAL IVP SCH (21:51)
[2023-04-23 23:31] LABS: GLUCOMETER DEV NAME(LOC) 5N.2C; GLUCOSE,POINT OF CARE 317 MG/DL (70-110)
[2023-04-24 00:58] VITALS: BP 132/55; PULSE 82; RESP 16; TEMP 98.2
[2023-04-24 05:30] VITALS: BP 147/68; PULSE 86; RESP 18; TEMP 97.9
[2023-04-24] MEDS: GlipiZIDE 5 MG TABLET PO SCH ×2 (05:58→17:31)
[2023-04-24 08:10] VITALS: BP 130/68; PULSE 94; RESP 18; TEMP 97.8
[2023-04-24] MEDS: METOPROLOL TARTRATE 25 MG TABLET PO SCH ×2 (08:12→20:06)
[2023-04-24] MEDS: PANTOPRAZOLE SODIUM 40 MG DR TABLET PO SCH (08:12)
[2023-04-24] MEDS: CLARITHROMYCIN 500 MG TABLET PO SCH ×2 (08:12→20:06)
[2023-04-24] MEDS: ETHYL ALCOHOL 62% ANTISEPTIC NASAL SANITIZER 0.6 ML AMPUL NASAL SCH ×2 (08:13→20:06)
[2023-04-24] MEDS: AMOXICILLIN TRIHYDRATE 500 MG CAPSULE PO SCH ×2 (08:13→20:07)
[2023-04-24] MEDS: ASPIRIN 81 MG CHEWABLE TABLET PO SCH (08:13)
[2023-04-24] MEDS: EMPAGLIFLOZIN 10 MG TABLET PO SCH (08:13)
[2023-04-24] MEDS: DOCUSATE SODIUM 250 MG CAPSULE PO SCH (08:13)
[2023-04-24] MEDS: ATORVASTATIN CALCIUM 20 MG TABLET PO SCH (08:13)
[2023-04-24] MEDS: CALCIUM CIT/VITAMIN D3 200 MG-250 UNITS[6.25MCG] TABLET PO SCH ×2 (08:14→20:07)
[2023-04-24] MEDS: BUMETANIDE 0.25 MG/ML 4 ML VIAL IVP SCH ×3 (08:14→20:06)
[2023-04-24] MEDS: ALBUMIN HUMAN 25%-25GM/100ML 100 ML IV SCH ×2 (08:25→15:48)
[2023-04-24] MEDS: 0.9% SODIUM CHLORIDE 10 ML SYRINGE IVP SCH ×4 (08:33→20:13)
[2023-04-24] MEDS: NYSTATIN 30 GM CREAM TP SCH ×3 (09:00→20:07)
[2023-04-24] MEDS ORDERED: DEXTROSE 50%-WATER 25 GM/50 ML SYRINGE IVP PRN (09:45)
[2023-04-24] MEDS ORDERED: BISACODYL 10 MG RECTAL RECTAL SUPPOSITORY PR PRN (09:45)
[2023-04-24] MEDS ORDERED: IPRATROPIUM BROMIDE 0.5 MG/2.5 ML NEB SOLUTION NEB PRN (09:45)
[2023-04-24] MEDS ORDERED: ALBUTEROL SULFATE 2.5 MG/0.5 ML NEB SOLUTION NEB PRN (09:45)
[2023-04-24] MEDS ORDERED: MORPHINE SULFATE 2 MG/ML SYRINGE IVP PRN (09:45)
[2023-04-24] MEDS ORDERED: MAGNESIUM HYDROXIDE SUSPENSION 30 ML UDCUP PO PRN (09:45)
[2023-04-24] MEDS ORDERED: ZOLPIDEM TARTRATE 5 MG TABLET PO PRN (09:45)
[2023-04-24] MEDS ORDERED: ACETAMINOPHEN 325 MG TABLET PO PRN (09:45)
[2023-04-24 10:23] LABS: BASOPHILS % (AUTO) 0.7 % (0.0-2.0); EOSINOPHILS % (AUTO) 2.7 % (1.0-6.0); HEMOGLOBIN 7.9 g/dL (13.5-17.5); LYMPHOCYTES # (AUTO) 1.2 K/uL (1.0-4.8); LYMPHOCYTES % (AUTO) 13.8 % (22.0-44.0); MEAN CORPUSCULAR HEMOGLOBIN 32.2 pg (26.0-34.0); MEAN CORPUSCULAR HGB CONC 34.5 G/dL (31.0-37.0); MEAN CORPUSCULAR VOLUME 93 fL (80-100); MONOCYTES # (AUTO) 0.7 K/uL (0.1-1.0); MONOCYTES % (AUTO) 8.7 % (2.0-9.0); NEUTROPHILS # (AUTO) 6.2 K/uL (1.8-7.7); NEUTROPHILS % (AUTO) 74.1 % (40.0-70.0); PLATELET COUNT (AUTO) 330 K/uL (150-450); RED BLOOD CELL COUNT(AUTO) 2.46 MIL/uL (4.50-5.90); RED CELL DISTRIBUTION WIDTH 15.7 % (11.5-14.5); WHITE BLOOD COUNT (AUTO) 8.4 K/uL (4.5-11.0)
[2023-04-24 10:44] LABS: CALCIUM, TOTAL 8.9 mg/dL (8.8-10.5); CREATININE 1.63 mg/dL (0.60-1.30); POTASSIUM 3.5 mmol/L (3.5-5.1)
[2023-04-24 10:50] LABS: ALBUMIN 3.3 g/dL (3.4-5.0); BILIRUBIN,TOTAL 0.6 mg/dL (0.1-1.0); TOTAL PROTEIN, SERUM 6.3 g/dL (6.4-8.2)
[2023-04-24 10:56] LABS: GLUCOMETER DEV NAME(LOC) 5S.2C; GLUCOSE,POINT OF CARE 259 MG/DL (70-110)
[2023-04-24 11:42] LABS: GLUCOMETER DEV NAME(LOC) 5S.2C; GLUCOSE,POINT OF CARE 112 MG/DL (70-110)
[2023-04-24] MEDS: INSULIN LISPRO 100 UNITS/ML SQ PRN ×3 (12:08→20:09)
[2023-04-24 12:30] VITALS: BP 144/72; PULSE 92; RESP 18; TEMP 98.1
[2023-04-24 15:30] VITALS: BP 179/113; PULSE 105; RESP 18; TEMP 98.1
[2023-04-24] MEDS ORDERED: HEPARIN SODIUM,PORCINE 5,000 UNITS/ML VIAL SQ SCH (16:00)
[2023-04-24] MEDS ORDERED: CloNIDine HCL 0.1 MG TABLET PO PRN (17:45)
[2023-04-24] MEDS: LISINOPRIL 20 MG TABLET PO SCH (18:45)
[2023-04-24] MEDS: DOCUSATE SODIUM 100 MG CAPSULE PO SCH (20:06)
[2023-04-24 20:14] VITALS: BP 153/49; PULSE 103; RESP 17; TEMP 97.8
[2023-04-24] MEDS: HYDROCODONE/ACETAMINOPHEN 5-325 MG TABLET PO PRN (20:14)
[2023-04-24 21:36] LABS: GLUCOMETER DEV NAME(LOC) 5S.1B; GLUCOSE,POINT OF CARE 195 MG/DL (70-110)
[2023-04-24 21:41] LABS: GLUCOMETER DEV NAME(LOC) 5S.1B; GLUCOSE,POINT OF CARE 259 MG/DL (70-110)
[2023-04-25 00:02] VITALS: BP 119/88; PULSE 105; RESP 18; TEMP 98.3
[2023-04-25 04:00] VITALS: BP 131/58; PULSE 90; RESP 18; TEMP 98.7
[2023-04-25] MEDS: GlipiZIDE 5 MG TABLET PO SCH ×2 (05:39→15:51)
[2023-04-25 05:46] LABS: GLUCOMETER DEV NAME(LOC) 5S.2C; GLUCOSE,POINT OF CARE 197 MG/DL (70-110)
[2023-04-25 07:13] LABS: C-REACTIVE PROTEIN QUANT 5.25 mg/dL (0.00-0.30); CHOL/HDL RATIO 2.4 (4.2-7.3)
[2023-04-25 07:15] LABS: % IRON SATURATION 18.4 % (30-44)
[2023-04-25 07:52] VITALS: BP 165/107; PULSE 92; RESP 20; TEMP 98
[2023-04-25 08:21] LABS: GLUCOMETER DEV NAME(LOC) 5N.1C; GLUCOSE,POINT OF CARE 130 MG/DL (70-110)
[2023-04-25] MEDS: CLARITHROMYCIN 500 MG TABLET PO SCH ×2 (08:33→20:55)
[2023-04-25] MEDS: METOPROLOL TARTRATE 25 MG TABLET PO SCH ×2 (08:33→20:55)
[2023-04-25] MEDS: DOCUSATE SODIUM 100 MG CAPSULE PO SCH ×2 (08:33→20:56)
[2023-04-25] MEDS: AMOXICILLIN TRIHYDRATE 500 MG CAPSULE PO SCH ×2 (08:33→20:57)
[2023-04-25] MEDS: CALCIUM CIT/VITAMIN D3 200 MG-250 UNITS[6.25MCG] TABLET PO SCH ×2 (08:33→20:56)
[2023-04-25] MEDS: ASPIRIN 81 MG CHEWABLE TABLET PO SCH (08:33)
[2023-04-25] MEDS: EMPAGLIFLOZIN 10 MG TABLET PO SCH (08:33)
[2023-04-25] MEDS: ATORVASTATIN CALCIUM 20 MG TABLET PO SCH (08:33)
[2023-04-25] MEDS: BUMETANIDE 0.25 MG/ML 4 ML VIAL IVP SCH ×3 (08:34→20:58)
[2023-04-25] MEDS: NYSTATIN 30 GM CREAM TP SCH ×3 (08:34→21:03)
[2023-04-25] MEDS: ETHYL ALCOHOL 62% ANTISEPTIC NASAL SANITIZER 0.6 ML AMPUL NASAL SCH ×2 (08:34→20:56)
[2023-04-25] MEDS: LISINOPRIL 20 MG TABLET PO SCH (08:39)
[2023-04-25] MEDS ORDERED: PANTOPRAZOLE SODIUM 40 MG/VIAL IVP SCH (09:00)
[2023-04-25] MEDS: 0.9% SODIUM CHLORIDE 10 ML SYRINGE IVP SCH ×4 (09:00→21:03)
[2023-04-25 10:13] VITALS: BP 118/72; PULSE 89; RESP 16; TEMP 98.2
[2023-04-25] MEDS: INSULIN LISPRO 100 UNITS/ML SQ PRN ×3 (11:55→21:12)
[2023-04-25 15:37] VITALS: BP 126/40; PULSE 83; RESP 16; TEMP 98.1
[2023-04-25 20:42] VITALS: BP 147/59; PULSE 101; RESP 17; TEMP 98.1
[2023-04-25 20:46] LABS: GLUCOMETER DEV NAME(LOC) 5N.1C; GLUCOSE,POINT OF CARE 165 MG/DL (70-110)
[2023-04-25 20:46] LABS: GLUCOMETER DEV NAME(LOC) 5N.1C; GLUCOSE,POINT OF CARE 267 MG/DL (70-110)
[2023-04-25] MEDS: HYDROCODONE/ACETAMINOPHEN 5-325 MG TABLET PO PRN (20:57)
[2023-04-26 00:54] VITALS: BP 126/56; PULSE 82; RESP 18; TEMP 98
[2023-04-26] MEDS: GlipiZIDE 5 MG TABLET PO SCH (06:45)
[2023-04-26 06:51] LABS: EOSINOPHILS % (AUTO) 2.8 % (1.0-6.0); HEMATOCRIT 23.3 % (41-53); HEMOGLOBIN 7.9 g/dL (13.5-17.5); LYMPHOCYTES # (AUTO) 2.6 K/uL (1.0-4.8); LYMPHOCYTES % (AUTO) 23.3 % (22.0-44.0); MEAN CORPUSCULAR HEMOGLOBIN 31.6 pg (26.0-34.0); MEAN CORPUSCULAR VOLUME 93 fL (80-100); MONOCYTES # (AUTO) 1.2 K/uL (0.1-1.0); MONOCYTES % (AUTO) 11.2 % (2.0-9.0); NEUTROPHILS # (AUTO) 6.8 K/uL (1.8-7.7); NEUTROPHILS % (AUTO) 61.7 % (40.0-70.0); PLATELET COUNT (AUTO) 395 K/uL (150-450); RED BLOOD CELL COUNT(AUTO) 2.51 MIL/uL (4.50-5.90); RED CELL DISTRIBUTION WIDTH 15.6 % (11.5-14.5)
[2023-04-26 07:01] LABS: CALCIUM, TOTAL 8.9 mg/dL (8.8-10.5); CREATININE 1.56 mg/dL (0.60-1.30); POTASSIUM 3.4 mmol/L (3.5-5.1)
[2023-04-26 07:49] VITALS: BP 166/94; PULSE 86; RESP 19; TEMP 98.2
[2023-04-26] MEDS ORDERED: FERROUS SULFATE 325 MG EC TABLET PO SCH (08:00)
[2023-04-26] MEDS: BUMETANIDE 0.25 MG/ML 4 ML VIAL IVP SCH ×2 (09:18→15:14)
[2023-04-26] MEDS: CALCIUM CIT/VITAMIN D3 200 MG-250 UNITS[6.25MCG] TABLET PO SCH (09:19)
[2023-04-26] MEDS: ETHYL ALCOHOL 62% ANTISEPTIC NASAL SANITIZER 0.6 ML AMPUL NASAL SCH (09:19)
[2023-04-26] MEDS: NYSTATIN 30 GM CREAM TP SCH (09:19)
[2023-04-26] MEDS: METOPROLOL TARTRATE 25 MG TABLET PO SCH (09:19)
[2023-04-26] MEDS: EMPAGLIFLOZIN 10 MG TABLET PO SCH (09:20)
[2023-04-26] MEDS: AMOXICILLIN TRIHYDRATE 500 MG CAPSULE PO SCH (09:20)
[2023-04-26] MEDS: LISINOPRIL 20 MG TABLET PO SCH (09:20)
[2023-04-26] MEDS: ATORVASTATIN CALCIUM 20 MG TABLET PO SCH (09:20)
[2023-04-26] MEDS: CLARITHROMYCIN 500 MG TABLET PO SCH (09:21)
[2023-04-26] MEDS: 0.9% SODIUM CHLORIDE 10 ML SYRINGE IVP SCH ×2 (09:21)
[2023-04-26] MEDS: ASPIRIN 81 MG CHEWABLE TABLET PO SCH (09:21)
[2023-04-26] MEDS: DOCUSATE SODIUM 100 MG CAPSULE PO SCH (09:21)
[2023-04-26 11:01] VITALS: BP 186/97; PULSE 79; RESP 19; TEMP 97.8
[2023-04-26] MEDS: INSULIN LISPRO 100 UNITS/ML SQ PRN (11:31)
[2023-04-26 12:49] VITALS: BP 162/77; PULSE 86; RESP 18
[2023-04-26 14:00] VITALS: BP 125/65; PULSE 75; RESP 18
[2023-04-26 14:56] LABS: GLUCOMETER DEV NAME(LOC) 5S.1B; GLUCOSE,POINT OF CARE 110 MG/DL (70-110)
[2023-04-26 14:56] LABS: GLUCOMETER DEV NAME(LOC) 5S.1B; GLUCOSE,POINT OF CARE 241 MG/DL (70-110)
[2023-04-26 14:56] LABS: GLUCOMETER DEV NAME(LOC) 5N.2C; GLUCOSE,POINT OF CARE 251 MG/DL (70-110)
[2023-04-26 15:29] VITALS: BP 132/74; PULSE 86; RESP 20; TEMP 98.2
== END 2023-04-26 16:20 | disposition home health service (06) | DRG 699 ==
LOC: 5S 12:00
PROVIDERS: ADMIT Hospitalist; ATTEND Hospitalist
DX: E11.21 Type 2 diabetes mellitus with diabetic nephropathy (principal); E87.1 Hypo-osmolality and hyponatremia; N17.9 Acute kidney failure, unspecified; N18.9 Chronic kidney disease, unspecified; E11.22 Type 2 diabetes mellitus with diabetic chronic kidney disease; E78.5 Hyperlipidemia, unspecified; D64.9 Anemia, unspecified; I12.9 Hypertensive chronic kidney disease with stage 1 through stage 4 chronic kidney disease, or unspecified chronic kidney disease; Z83.3 Family history of diabetes mellitus; Z79.82 Long term (current) use of aspirin; Z79.899 Other long term (current) drug therapy; Z79.84 Long term (current) use of oral hypoglycemic drugs; Z79.4 Long term (current) use of insulin
CPT/HCPCS: 80048; 80053; 80061; 82728; 82962; 83540; 83550; 85025; 86038; 86140; 97110; 97116; 97162; 97167; 97530; 97535; J2270; J3490; J7050; P9046; Q9967